=== PATIENT | male | born 1980 | race American Indian/Alaskan Native ===

== ENCOUNTER 2022-12-18 11:53 | Inpatient (IN) | payer OTHER ==
[2022-12-18 13:27] LABS: BASOPHILS PERCENT AUTO 0.1 % (0.1-1.3); EOSINOPHILS ABSOLUTE AUTO 0.06 K/uL (0.00-0.40); EOSINOPHILS PERCENT AUTO 0.4 % (0.0-5.4); HEMATOCRIT 44.6 % (38.4-49.7); IMMATURE GRAN ABSOLUTE AUTO 0.06 K/uL (0.00-0.23); IMMATURE GRAN PERCENT AUTO 0.4 % (0.0-0.7); LYMPHOCYTES ABSOLUTE AUTO 2.74 K/uL (0.8-3.3); LYMPHOCYTES PERCENT AUTO 19.3 % (11.4-47.7); MEAN CORPUSCULAR HEMOGLOBIN 28.6 pg (31.6-35.5); MEAN CORPUSCULAR HGB CONC 33.6 g/dL (31.6-35.5); MEAN CORPUSCULAR VOLUME 85.1 fL (81.4-99.0); MONOCYTES ABSOLUTE AUTO 0.62 K/uL (0.20-0.90); MONOCYTES PERCENT AUTO 4.4 % (3.3-12.6); NEUTROPHILS ABSOLUTE AUTO 10.68 K/uL (1.0-7.6); NEUTROPHILS PERCENT AUTO 75.4 % (40.0-78.1); PLATELET COUNT,PLT 262 K/uL (130-375); RED BLOOD CELL COUNT 5.24 M/uL (4.14-5.76); WHITE BLOOD CELL COUNT,WBC 14.2 K/uL (3.2-11.0)
[2022-12-18 13:30] LABS: BASOPHILS ABSOLUTE AUTO 0.01 K/uL (0.00-0.10)
[2022-12-18 13:53] LABS: A/G RATIO 0.9 (1.2-2.2); ALANINE AMINOTRANSFERASE,ALT 76 U/L (12-78); ALBUMIN 3.4 g/dL (3.4-5.0); ALKALINE PHOSPHATASE 81 U/L (46-116); ANION GAP 8.4 mmol/L (5.0-14.0); ASPARTATE AMNIOTRANSFERASE,AST 65 U/L (15-37); BILIRUBIN TOTAL 0.6 mg/dL (0.2-1.0); BLOOD UREA NITROGEN,BUN 10 mg/dL (7-18); C-REACTIVE PROTEIN < 0.05 mg/dL (0.0-0.3); CALCIUM 8.6 mg/dL (8.5-10.1); CARBON DIOXIDE,CO2 34 mmol/L (21-32); CHLORIDE,CL 99 mmol/L (100-108); CREATININE 0.9 mg/dL (0.8-1.3); EST CRCL DRUG DOSING (CG) 117.36 mL/min; ESTIMATED GFR 109 mL/min (>60); GLUCOSE RANDOM 115 mg/dL (74-106); POTASSIUM,K 4.4 mmol/L (3.6-5.2); PROTEIN TOTAL,TP 7.2 g/dL (6.4-8.2); SODIUM,NA 137 mmol/L (140-148)
[2022-12-18] MEDS ORDERED: Lisinopril 10 MG Tab PO ONE (14:52)
[2022-12-18] MEDS ORDERED: Sodium Chloride 0.9% 10 ML Syringe FLUSH PRN (17:09)
[2022-12-18] MEDS: Ampicillin/Sulbactam Na 3 GM in Sodium Chloride 0.9% 100 ML IV SCH (18:13)
[2022-12-18] MEDS ORDERED: Sodium Chloride 0.9% 1,000 ML IV SCH (19:57)
[2022-12-18] MEDS ORDERED: Magnesium Hydroxide 400 MG/5 ML Susp 30 ML Cup PO PRN (19:57)
[2022-12-18] MEDS ORDERED: Sennosides/Docusate Sodium 50-8.6 MG Tab PO PRN (19:57)
[2022-12-18] MEDS ORDERED: Ondansetron 4 MG Tab.DIS PO PRN (19:57)
[2022-12-18] MEDS ORDERED: Ondansetron 4 MG/2 ML SDV IV PRN (19:57)
[2022-12-18] MEDS: Pantoprazole 40 MG Tab.CR PO SCH (21:33)
[2022-12-18] MEDS: HYDROmorphone 0.5 MG/0.5 ML Syringe IVPUSH PRN (21:33)
[2022-12-18] MEDS: Melatonin 3 MG Tab PO SCH (21:33)
[2022-12-19] MEDS: Ampicillin/Sulbactam Na 3 GM in Sodium Chloride 0.9% 100 ML IV SCH ×4 (00:13→17:07)
[2022-12-19] MEDS: HYDROmorphone 0.5 MG/0.5 ML Syringe IVPUSH PRN (05:32)
[2022-12-19 06:07] LABS: BASOPHILS PERCENT AUTO 0.1 % (0.1-1.3); EOSINOPHILS ABSOLUTE AUTO 0.05 K/uL (0.00-0.40); EOSINOPHILS PERCENT AUTO 0.4 % (0.0-5.4); HEMATOCRIT 45.1 % (38.4-49.7); HEMOGLOBIN 15.4 g/dL (12.9-16.9); IMMATURE GRAN ABSOLUTE AUTO 0.03 K/uL (0.00-0.23); IMMATURE GRAN PERCENT AUTO 0.2 % (0.0-0.7); LYMPHOCYTES ABSOLUTE AUTO 3.05 K/uL (0.8-3.3); LYMPHOCYTES PERCENT AUTO 23.5 % (11.4-47.7); MEAN CORPUSCULAR HEMOGLOBIN 28.6 pg (31.6-35.5); MEAN CORPUSCULAR HGB CONC 34.1 g/dL (31.6-35.5); MEAN CORPUSCULAR VOLUME 83.7 fL (81.4-99.0); MONOCYTES ABSOLUTE AUTO 1.06 K/uL (0.20-0.90); MONOCYTES PERCENT AUTO 8.2 % (3.3-12.6); NEUTROPHILS ABSOLUTE AUTO 8.76 K/uL (1.0-7.6); NEUTROPHILS PERCENT AUTO 67.6 % (40.0-78.1); PLATELET COUNT,PLT 276 K/uL (130-375); RED BLOOD CELL COUNT 5.39 M/uL (4.14-5.76)
[2022-12-19 06:08] LABS: BASOPHILS ABSOLUTE AUTO 0.01 K/uL (0.00-0.10)
[2022-12-19 06:24] LABS: A/G RATIO 0.8 (1.2-2.2); ALANINE AMINOTRANSFERASE,ALT 178 U/L (12-78); ALBUMIN 3.1 g/dL (3.4-5.0); ALKALINE PHOSPHATASE 130 U/L (46-116); ASPARTATE AMNIOTRANSFERASE,AST 175 U/L (15-37); BILIRUBIN TOTAL 3.2 mg/dL (0.2-1.0); BLOOD UREA NITROGEN,BUN 7 mg/dL (7-18); CALCIUM 8.4 mg/dL (8.5-10.1); CARBON DIOXIDE,CO2 29 mmol/L (21-32); CHLORIDE,CL 100 mmol/L (100-108); CREATININE 0.8 mg/dL (0.8-1.3); EST CRCL DRUG DOSING (CG) 132.03 mL/min; ESTIMATED GFR 113 mL/min (>60); GLUCOSE RANDOM 115 mg/dL (74-106); POTASSIUM,K 4.2 mmol/L (3.6-5.2); SODIUM,NA 137 mmol/L (140-148)
[2022-12-19 06:28] LABS: ANION GAP 12.2 mmol/L (5.0-14.0)
[2022-12-19] MEDS ORDERED: Lidocaine 1% with EPINEPHrine 1:100,000 50 ML MDV ONE (06:50)
[2022-12-19] MEDS ORDERED: Meropenem 500 MG SDV ONE (06:50)
[2022-12-19] MEDS ORDERED: Bupivacaine 0.5% 50 ML MDV ONE (06:50)
[2022-12-19] MEDS ORDERED: fentaNYL 250 MCG/5 ML SDV ONE ×2 (07:47→08:22)
[2022-12-19] MEDS ORDERED: Dexamethasone 4 MG/ML SDV ONE (07:48)
[2022-12-19] MEDS ORDERED: Glycopyrrolate 0.2 MG/ML 5 ML MDV ONE (07:48)
[2022-12-19] MEDS ORDERED: Ondansetron 4 MG/2 ML SDV ONE (07:48)
[2022-12-19] MEDS ORDERED: Neostigmine Methylsulfate 1 MG/ML 5 ML Syringe ONE (07:48)
[2022-12-19] MEDS ORDERED: Rocuronium 50 MG/5 ML Vial ONE (07:48)
[2022-12-19] MEDS ORDERED: Propofol 200 MG/20 ML SDV ONE (07:48)
[2022-12-19] MEDS ORDERED: Succinylcholine 200 MG/10 ML MDV ONE (07:48)
[2022-12-19] MEDS: Pantoprazole 40 MG Tab.CR PO SCH (07:53)
[2022-12-19] MEDS ORDERED: Ropivacaine 40 ML, dexAMETHasone 8 MG, EPINEPHrine 0.4 MG, Sodium Chloride 0.9% 37.6 ML NERVRT SCH ×4 (08:00)
[2022-12-19] MEDS ORDERED: Ketamine 500 MG/5 ML MDV IV SCH (08:00)
[2022-12-19] MEDS ORDERED: Ketamine 25 MG in Sodium Chloride 0.9% 19.75 ML IV SCH (08:00)
[2022-12-19] MEDS ORDERED: Labetalol 20 MG/4 ML Syringe ONE (08:44)
[2022-12-19] MEDS: Lisinopril 10 MG Tab PO SCH (10:20)
[2022-12-19] MEDS ORDERED: Ondansetron 4 MG/2 ML SDV IV PRN (10:54)
[2022-12-19] MEDS: oxyCODONE 5 MG Tab PO PRN ×2 (11:20→17:08)
[2022-12-19] MEDS ORDERED: Dextrose 5%-Lactated Ringers 1,000 ML IV SCH (11:45)
[2022-12-19] MEDS: Acetaminophen 325 MG Tab PO PRN (19:58)
[2022-12-19] MEDS: Melatonin 3 MG Tab PO SCH (21:25)
[2022-12-20] MEDS: Ampicillin/Sulbactam Na 3 GM in Sodium Chloride 0.9% 100 ML IV SCH ×2 (00:29→05:52)
[2022-12-20 04:45] LABS: BASOPHILS PERCENT AUTO 0.1 % (0.1-1.3); HEMATOCRIT 38.9 % (38.4-49.7); HEMOGLOBIN 13.1 g/dL (12.9-16.9); IMMATURE GRAN ABSOLUTE AUTO 0.05 K/uL (0.00-0.23); IMMATURE GRAN PERCENT AUTO 0.3 % (0.0-0.7); LYMPHOCYTES ABSOLUTE AUTO 2.91 K/uL (0.8-3.3); LYMPHOCYTES PERCENT AUTO 16.2 % (11.4-47.7); MEAN CORPUSCULAR HEMOGLOBIN 28.8 pg (31.6-35.5); MEAN CORPUSCULAR HGB CONC 33.7 g/dL (31.6-35.5); MEAN CORPUSCULAR VOLUME 85.5 fL (81.4-99.0); MONOCYTES ABSOLUTE AUTO 1.01 K/uL (0.20-0.90); MONOCYTES PERCENT AUTO 5.6 % (3.3-12.6); NEUTROPHILS ABSOLUTE AUTO 13.96 K/uL (1.0-7.6); NEUTROPHILS PERCENT AUTO 77.8 % (40.0-78.1); PLATELET COUNT,PLT 248 K/uL (130-375); RED BLOOD CELL COUNT 4.55 M/uL (4.14-5.76)
[2022-12-20 05:20] LABS: BASOPHILS ABSOLUTE AUTO 0.02 K/uL (0.00-0.10)
[2022-12-20] MEDS: Acetaminophen 325 MG Tab PO PRN (07:20)
[2022-12-20] MEDS ORDERED: Pantoprazole 40 MG Vial IV SCH (08:00)
[2022-12-20] MEDS: Lisinopril 10 MG Tab PO SCH (09:31)
== END 2022-12-20 10:00 | DRG 418 ==
LOC: JP.ED 11:53 → UNDOADMIN 18:35 → JP.MS 18:35 → UNDODISIN 12-20 10:00
PROVIDERS: ADMIT Registered Nurse; ATTEND Surgery
PROC: 0FT44ZZ Resection of Gallbladder, Percutaneous Endoscopic Approach (ICD-10-PCS; principal; 2022-12-18)
PROC: 0WQF4ZZ Repair Abdominal Wall, Percutaneous Endoscopic Approach (ICD-10-PCS; 2022-12-18)
DX: K80.10 Calculus of gallbladder with chronic cholecystitis without obstruction (principal); K42.0 Umbilical hernia with obstruction, without gangrene; I10 Essential (primary) hypertension; F17.210 Nicotine dependence, cigarettes, uncomplicated; Z98.890 Other specified postprocedural states
CPT/HCPCS: 36415; 76705; 80053; 82247; 84075; 84484; 85025; 86140; 88304; 93005; 93010; 99222; 99285; A9270-GY; J0131; J0171; J0295; J0330; J1100; J1170; J2185; J2405; J2704; J2710; J2795; J3010; J3490; J7030; J7121; U0002

== ENCOUNTER 2022-12-21 06:49 | Emergency (ER) | payer OTHER ==
[2022-12-21] MEDS ORDERED: Lisinopril 10 MG Tab PO ONE (07:28)
== END 2022-12-21 08:12 ==
LOC: JP.ED 06:49
DX: G89.18 Other acute postprocedural pain (principal); R10.10 Upper abdominal pain, unspecified; R07.81 Pleurodynia; I10 Essential (primary) hypertension; F17.210 Nicotine dependence, cigarettes, uncomplicated; Z79.899 Other long term (current) drug therapy; Z90.49 Acquired absence of other specified parts of digestive tract
CPT/HCPCS: 71046; 93005; 99284; A9270